=== PATIENT | male | born 1990 | race African-American/Black ===

== ENCOUNTER 2023-09-12 05:07 | Day surgery (SDC) | payer OTHER ==
[2023-09-11 13:20] VITALS: BMI 32.5
[2023-09-12 08:43] LABS: INR 1.42 (0.83-1.09); PROTHROMBIN TIME (PATIENT) 16.4 SEC (9.7-13.0)
[2023-09-12] MEDS ORDERED: ONDANSETRON 4 MG/2 ML VIAL IVPUSH PRN (09:19)
[2023-09-12] MEDS ORDERED: oxyCODONE HCL 5 MG TABLET PO PRN ×2 (09:19)
[2023-09-12] MEDS ORDERED: PROMETHAZINE HCL 25 MG/1 ML VIAL IVPB PRN (09:19)
[2023-09-12] MEDS ORDERED: ACETAMINOPHEN 1000 MG/100 ML BAG IVPB PRN (09:20)
[2023-09-12] MEDS ORDERED: LIDOCAINE HCL 1%, 10 MG/ML (20ML VIAL) ONE (09:24)
[2023-09-12] MEDS ORDERED: MIDAZOLAM HCL 2 MG/2 ML SINGLE DOSE VIAL ONE (09:24)
[2023-09-12] MEDS ORDERED: PROPOFOL 20 ML ONE ×2 (09:25→09:35)
[2023-09-12] MEDS ORDERED: FENTANYL CITRATE/PF 50 MCG/ML VIAL ONE ×4 (09:25→10:49)
[2023-09-12] MEDS ORDERED: ACETAMINOPHEN 1000 MG/100 ML BAG IVPB ONE (09:27)
[2023-09-12] MEDS ORDERED: LIDOCAINE HCL 1%, 10 MG/ML (20ML VIAL) INF ONE ×2 (09:27→09:44)
[2023-09-12] MEDS ORDERED: LACTATED RINGERS SOLUTION 1,000 ML IV SCH (09:30)
[2023-09-12] MEDS ORDERED: DEXTROSE 5%-0.45% SALINE 1,000 ML IV SCH (09:30)
[2023-09-12] MEDS ORDERED: LIDOCAINE HCL/PF 2% SDV 5ML VIAL ONE (09:32)
[2023-09-12] MEDS ORDERED: ceFAZolin SODIUM 1 GM VIAL ONE (09:39)
[2023-09-12] MEDS ORDERED: ceFAZolin SODIUM 1 GM VIAL IVPB ONE (09:40)
[2023-09-12] MEDS ORDERED: SEVOFLURANE 250 ML BTL ONE (10:02)
[2023-09-12 11:36] VITALS: RESP 16
[2023-09-12 13:21] VITALS: BP 148/88; PULSE 73; TEMP 97.3
== END 2023-09-12 13:34 | disposition home or self-care (01) ==
LOC: JASU-SURG 05:07
PROVIDERS: ATTEND Urology
PROC: 0VB Male Reproductive System, Excision (ICD-10-PCS; principal; 2023-09-12 09:00)
DX: N46.01 Organic azoospermia (principal)
CPT/HCPCS: 36415; 85610; 88307-TC; 94760